=== PATIENT | female | born 2000 | race Caucasian/White ===

== ENCOUNTER 2021-08-04 20:14 | Emergency (ER) | payer OTHER ==
[~2021-08-04 20:14] MED LIST: IBUPROFEN800 MG PO; KEFLEX500 MG PO; ONDANSETRON ODT4 MG SL
[2021-08-04] MEDS ORDERED: MEDROL 4MG DOSEP4 MG PO (22:29)
== END 2021-08-04 22:46 | disposition home or self-care (01) ==
LOC: FER 20:14
DX: S63.502A Unspecified sprain of left wrist, initial encounter (principal); X58.XXXA Exposure to other specified factors, initial encounter; Y93.72 Activity, wrestling; Y92.009 Unspecified place in unspecified non-institutional (private) residence as the place of occurrence of the external cause
CPT/HCPCS: 73110